=== PATIENT | male | born 1955 | race African-American/Black ===

== ENCOUNTER 2020-11-10 13:09 | Inpatient (IN) | payer MEDICARE, MEDICAID ==
[~2020-11-10] VITALS: Ht 162.6 cm; Wt 83.5 kg
[2020-11-10] MEDS ORDERED: FUROSEMIDE 40MG/4ML VIAL IVP ONE (14:45)
[2020-11-10 15:48] LABS: BASOPHILS % 0.7 % (0.0-2.0); EOSINOPHILS % 5.7 % (0.0-5.0); HEMATOCRIT. 36.1 % (42.0-52.0); HEMOGLOBIN. 12.2 g/dL (14.0-18.0); LYMPHOCYTES % 13.9 % (20.0-50.0); MEAN CORPUSCULAR HEMOGLOBIN 29.9 pg (28.0-32.0); MEAN CORPUSCULAR VOLUME 88.6 fL (80.0-94.0); MEAN PLATELET VOLUME 8.4 fl (7.4-10.4); MONOCYTES % 9.2 % (2.0-8.0); NEUTROPHILS % 70.5 % (40.0-76.0); PLATELET 241 x1000/uL (130-400); RED BLOOD CELL COUNT 4.08 mill/uL (4.7-6.1); RED CELL DISTRIBUTION WIDTH 14.6 % (11.6-14.6)
[2020-11-10 15:51] LABS: CHLORIDE 109 mEq/L (98-107)
[2020-11-10 15:54] LABS: PROTHROMBIN TIME 10.9 sec (9.6-11.0)
[2020-11-10] MEDS ORDERED: VANCOMYCIN 1 G PREMIX 200 ML IV SCH (16:00)
[2020-11-10] MEDS ORDERED: NIFEDIPINE XL 60MG TAB PO ONE (16:00)
[2020-11-10] MEDS ORDERED: ASPIRIN 81MG TABLET PO NR ×2 (16:15→20:45)
[2020-11-10 17:01] LABS: CLARITY URINE CLEAR (CLEAR); COLOR URINE YELLOW (YELLOW); KETONES URINE NEGATIVE (NEGATIVE); LEUKOCYTE ESTERASE URINE NEGATIVE (NEGATIVE); NITRITE URINE NEGATIVE (NEGATIVE); OCCULT BLOOD URINE TRACE (NEGATIVE); PROTEIN URINE NEGATIVE (NEGATIVE); SPECIFIC GRAVITY URINE 1.007 (1.005-1.030); UROBILINOGEN URINE 0.2 E.U./dL (0.2-1.0)
[2020-11-10] MEDS ORDERED: PIPERACILLIN/TAZ 3.375G PREMIX 50 ML IV SCH (20:45)
[2020-11-10] MEDS ORDERED: ACETAMINOPHEN 325MG TABLET PO PRN (20:45)
[2020-11-10] MEDS ORDERED: ZOLPIDEM TARTRATE 5MG TABLET PO PRN (21:00)
[2020-11-10] MEDS ORDERED: PIPERACILLIN/TAZ 3.375G PREMIX 50 ML IV NR (21:00)
[2020-11-10] MEDS: LOSARTAN POTASSIUM 100 MG TABLET PO SCH (21:37)
[2020-11-10] MEDS: ENOXAPARIN 40MG/0.4ML SYR SUBCUT SCH (21:37)
[2020-11-10] MEDS: ATORVASTATIN CALCIUM 40MG TABLET PO SCH (21:37)
[2020-11-10] MEDS: CLONIDINE 0.1MG TABLET PO PRN (23:58)
[2020-11-11 01:30] VITALS: BP 171/86
[2020-11-11] MEDS ORDERED: DEXTROSE 50% WATER 50ML SYRINGE IV PRN (04:00)
[2020-11-11] MEDS ORDERED: PIPERACILLIN/TAZOBACTAM 3.375G in DEXT 5% WATER 50ML IV SCH (06:00)
[2020-11-11 06:17] LABS: BASOPHILS % 0.8 % (0.0-2.0); EOSINOPHILS % 5.6 % (0.0-5.0); HEMATOCRIT. 38.3 % (42.0-52.0); HEMOGLOBIN. 12.7 g/dL (14.0-18.0); LYMPHOCYTES % 15.3 % (20.0-50.0); MEAN CORPUSCULAR HEMOGLOBIN 29.8 pg (28.0-32.0); MEAN PLATELET VOLUME 9.3 fl (7.4-10.4); MONOCYTES % 8.1 % (2.0-8.0); NEUTROPHILS % 70.2 % (40.0-76.0); PLATELET 232 x1000/uL (130-400); RED BLOOD CELL COUNT 4.25 mill/uL (4.7-6.1); RED CELL DISTRIBUTION WIDTH 14.5 % (11.6-14.6)
[2020-11-11] MEDS ORDERED: BLOOD SUGAR DIAGNOSTIC STRIP TEST SCH (07:10)
[2020-11-11] MEDS ORDERED: INSULIN LISPRO 100 UNITS/ML SUBCUT SCH (07:40)
[2020-11-11 08:00] VITALS: BP 167/90
[2020-11-11] MEDS ORDERED: POTASSIUM CHLORIDE 20MEQ TABLET SR PO SCH (08:00)
[2020-11-11] MEDS ORDERED: VANCOMYCIN 1 G PREMIX 200 ML IV SCH (10:00)
[2020-11-11] MEDS: LOSARTAN POTASSIUM 100 MG TABLET PO SCH (10:48)
[2020-11-11] MEDS ORDERED: FUROSEMIDE 40MG/4ML VIAL IVP SCH (13:15)
[2020-11-11] MEDS: AMLODIPINE 10MG TABLET PO SCH (13:49)
[2020-11-11] MEDS: LORAZEPAM 0.5MG TABLET PO PRN ×2 (15:10→20:33)
[2020-11-11] MEDS ORDERED: DOXY150T5 MT (15:56)
[2020-11-11] MEDS ORDERED: PRO1 MT (15:56)
[2020-11-11] MEDS ORDERED: BENA40TA9 MT (15:56)
[2020-11-11] MEDS ORDERED: CLON0.1T PO (15:56)
[2020-11-11] MEDS ORDERED: AM250 PO (15:56)
[2020-11-11] MEDS ORDERED: DONE5TAB26 MT (15:56)
[2020-11-11] MEDS ORDERED: METO-396 MT (15:56)
[2020-11-11] MEDS ORDERED: ASPI-1406 PO (15:56)
[2020-11-11] MEDS: FUROSEMIDE 40MG TABLET PO SCH (17:09)
[2020-11-11] MEDS: CLINDAMYCIN HCL 150MG CAPSULE PO SCH ×2 (17:09→23:10)
[2020-11-11 20:00] VITALS: BP 177/111
[2020-11-11] MEDS: ATORVASTATIN CALCIUM 40MG TABLET PO SCH (20:33)
[2020-11-11] MEDS: RISPERIDONE 0.5MG TABLET PO SCH (20:33)
[2020-11-11] MEDS: CLONIDINE 0.1MG TABLET PO PRN (20:33)
[2020-11-11] MEDS: DONEPEZIL HCL 5MG TABLET PO SCH (20:33)
[2020-11-11] MEDS: ENOXAPARIN 40MG/0.4ML SYR SUBCUT SCH (20:34)
[2020-11-12] VITALS: BP 178/90
[2020-11-12 04:00] VITALS: BP 148/85
[2020-11-12] MEDS: LORAZEPAM 0.5MG TABLET PO PRN (04:28)
[2020-11-12] MEDS: CLONIDINE 0.1MG TABLET PO PRN ×2 (04:28→15:06)
[2020-11-12] MEDS: CLINDAMYCIN HCL 150MG CAPSULE PO SCH (05:34)
[2020-11-12 06:43] LABS: BASOPHILS % 0.6 % (0.0-2.0); EOSINOPHILS % 5.8 % (0.0-5.0); HEMATOCRIT. 36.2 % (42.0-52.0); HEMOGLOBIN. 11.9 g/dL (14.0-18.0); LYMPHOCYTES % 13.5 % (20.0-50.0); MEAN CORPUSCULAR VOLUME 91.1 fL (80.0-94.0); MONOCYTES % 6.5 % (2.0-8.0); NEUTROPHILS % 73.6 % (40.0-76.0); PLATELET 98 x1000/uL (130-400); RED BLOOD CELL COUNT 3.97 mill/uL (4.7-6.1); RED CELL DISTRIBUTION WIDTH 14.7 % (11.6-14.6)
[2020-11-12 08:00] VITALS: BP 177/99
[2020-11-12] MEDS ORDERED: HYDRALAZINE HCL 50MG TABLET PO NR ×2 (09:00→17:30)
[2020-11-12] MEDS: RISPERIDONE 0.5MG TABLET PO SCH ×2 (09:57→17:45)
[2020-11-12] MEDS: FUROSEMIDE 40MG TABLET PO SCH (09:57)
[2020-11-12] MEDS: LOSARTAN POTASSIUM 100 MG TABLET PO SCH (09:57)
[2020-11-12] MEDS: DONEPEZIL HCL 5MG TABLET PO SCH (09:58)
[2020-11-12] MEDS: AMLODIPINE 10MG TABLET PO SCH (09:58)
[2020-11-12] MEDS ORDERED: CLINDAMYCIN 300 MG in DEXTROSE 5% WATER 50 ML IV SCH (11:15)
[2020-11-12 12:00] VITALS: BP 166/92
[2020-11-12] MEDS: CLINDAMYCIN 600MG PREMIX 50 ML IV SCH ×2 (15:39→22:22)
[2020-11-12 16:00] VITALS: BP 168/96
[2020-11-12] MEDS: FUROSEMIDE 40MG/4ML VIAL IVP SCH (17:45)
[2020-11-12 20:00] VITALS: BP 155/84
[2020-11-12] MEDS ORDERED: HYDRALAZINE HCL 50MG TABLET PO SCH (21:00)
[2020-11-12] MEDS: HYDRALAZINE HCL 100MG TABLET PO SCH (22:22)
[2020-11-12] MEDS: ATORVASTATIN CALCIUM 40MG TABLET PO SCH (22:22)
[2020-11-13] VITALS: BP 150/78
[2020-11-13 04:00] VITALS: BP 171/88
[2020-11-13] MEDS: FUROSEMIDE 40MG/4ML VIAL IVP SCH (06:27)
[2020-11-13] MEDS: CLINDAMYCIN 600MG PREMIX 50 ML IV SCH ×2 (06:27→15:33)
[2020-11-13 07:32] LABS: BASOPHILS % 0.2 % (0.0-2.0); EOSINOPHILS % 4.1 % (0.0-5.0); HEMATOCRIT. 33.8 % (42.0-52.0); HEMOGLOBIN. 11.4 g/dL (14.0-18.0); LYMPHOCYTES % 12.3 % (20.0-50.0); MEAN CORPUSCULAR HEMOGLOBIN 29.8 pg (28.0-32.0); MEAN CORPUSCULAR VOLUME 88.7 fL (80.0-94.0); MEAN PLATELET VOLUME 8.9 fl (7.4-10.4); MONOCYTES % 8.8 % (2.0-8.0); NEUTROPHILS % 74.6 % (40.0-76.0); RED BLOOD CELL COUNT 3.81 mill/uL (4.7-6.1)
[2020-11-13 08:00] VITALS: BP 184/82
[2020-11-13 08:00] LABS: PLATELET 225 x1000/uL (130-400)
[2020-11-13] MEDS ORDERED: LIDOCAINE HCL 1% 20ML VIAL (Pyxis) INJ ONE ×2 (08:02→12:30)
[2020-11-13] MEDS ORDERED: POTASSIUM CHLORIDE 20MEQ TABLET SR PO NR (08:15)
[2020-11-13] MEDS: HYDRALAZINE HCL 100MG TABLET PO SCH (09:00)
[2020-11-13] MEDS ORDERED: HEPARIN SODIUM 1,000 UNIT/1ML VIAL IV ONE (09:13)
[2020-11-13] MEDS: LOSARTAN POTASSIUM 100 MG TABLET PO SCH (10:00)
[2020-11-13] MEDS: RISPERIDONE 0.5MG TABLET PO SCH ×2 (10:00→17:45)
[2020-11-13] MEDS: DONEPEZIL HCL 5MG TABLET PO SCH (10:00)
[2020-11-13] MEDS: AMLODIPINE 10MG TABLET PO SCH (10:00)
[2020-11-13 12:00] VITALS: BP 171/88
[2020-11-13] MEDS ORDERED: IODIXANOL 320MG/ML 100 ML BOTTLE IV ONE (12:30)
[2020-11-13] MEDS ORDERED: MIDAZOLAM HCL 2 MG/2 ML VIAL ONE (12:48)
[2020-11-13] MEDS ORDERED: FENTANYL CITRATE/PF 50MCG/ML 2ML VIAL ONE (12:48)
[2020-11-13] MEDS ORDERED: FUROSEMIDE 40MG/4ML VIAL IVP SCH (13:00)
[2020-11-13] MEDS ORDERED: IOHEXOL-300 100 ML BOTTLE ONE (13:35)
[2020-11-13 16:00] VITALS: BP 168/68
[2020-11-13] MEDS: CLONIDINE 0.1MG TABLET PO PRN (21:55)
== END 2020-11-13 22:22 | DRG 252 ==
LOC: ER 13:09 → 8WST 18:35 → EDBEDREQTM 18:48 → EDBEDREQ 18:48 → ENRESERV 23:09 → 8WST 11-11 09:58
PROVIDERS: ADMIT Internal Medicine Pulmonary Disease; ATTEND Internal Medicine Pulmonary Disease
PROC: 047S3ZZ Dilation of Left Posterior Tibial Artery, Percutaneous Approach (ICD-10-PCS; principal; 2020-11-13)
PROC: B41G1ZZ Fluoroscopy of Left Lower Extremity Arteries using Low Osmolar Contrast (ICD-10-PCS; 2020-11-13)
PROC: 02HV33Z Insertion of Infusion Device into Superior Vena Cava, Percutaneous Approach (ICD-10-PCS; 2020-11-13)
PROC: B548ZZA Ultrasonography of Superior Vena Cava, Guidance (ICD-10-PCS; 2020-11-13)
DX: E11.51 Type 2 diabetes mellitus with diabetic peripheral angiopathy without gangrene (principal); I50.41 Acute combined systolic (congestive) and diastolic (congestive) heart failure; L03.116 Cellulitis of left lower limb; I11.0 Hypertensive heart disease with heart failure; E78.5 Hyperlipidemia, unspecified; E78.00 Pure hypercholesterolemia, unspecified; I70.202 Unspecified atherosclerosis of native arteries of extremities, left leg; Z20.822 Contact with and (suspected) exposure to COVID-19; F03.90 Unspecified dementia, unspecified severity, without behavioral disturbance, psychotic disturbance, mood disturbance, and anxiety; I25.2 Old myocardial infarction; Z86.73 Personal history of transient ischemic attack (TIA), and cerebral infarction without residual deficits; Z79.82 Long term (current) use of aspirin; Z79.899 Other long term (current) drug therapy
CPT/HCPCS: 36415; 37228; 71045; 73590; 75710; 76937; 80048; 80053; 80061; 81003; 82962; 83036; 83880; 84443; 84484; 85025; 85347; 87426; 93005; 93306; 93923; 93970; 99285; C1725; C1760; C1769; C1887; C1893; C1894; J1644; J1650; J1940; J2250; J2543; J3010; J3370; J3490; J7040; J7060; Q9967

== ENCOUNTER 2021-06-22 12:20 | Emergency (ER) | payer MEDICARE, MEDICAID ==
[~2021-06-22] VITALS: Ht 172.7 cm; Wt 79.0 kg
[~2021-06-22 12:20] MED LIST: AM250 PO; ASPI-1406 PO; BENA40TA9 MT; CLON0.1T PO; DONE5TAB26 MT; DOXY150T5 MT; METO-396 MT; PRO1 MT
[2021-06-22 14:18] LABS: BASOPHILS % 0.5 % (0.0-2.0); EOSINOPHILS % 4.2 % (0.0-5.0); HEMATOCRIT. 32.9 % (42.0-52.0); LYMPHOCYTES % 11.1 % (20.0-50.0); MEAN CORPUSCULAR HEMOGLOBIN 30.8 pg (28.0-32.0); MEAN CORPUSCULAR VOLUME 91.8 fL (80.0-94.0); MEAN PLATELET VOLUME 9.5 fl (7.4-10.4); MONOCYTES % 9.3 % (2.0-8.0); NEUTROPHILS % 74.9 % (40.0-76.0); PLATELET 194 x1000/uL (130-400); RED BLOOD CELL COUNT 3.58 mill/uL (4.7-6.1); RED CELL DISTRIBUTION WIDTH 14.1 % (11.6-14.6)
[2021-06-22 14:25] LABS: CHLORIDE 106 mEq/L (98-107)
[2021-06-22] MEDS ORDERED: POTASSIUM CHLORIDE 20MEQ TABLET SR PO NR (15:15)
[2021-06-22] MEDS ORDERED: POTA-79 MT (15:56)
[2021-06-22] MEDS ORDERED: SULF1TAB47 MT (15:56)
[2021-06-22] MEDS ORDERED: FURO-152 MT (15:56)
[2021-06-22] MEDS ORDERED: CEPH500C2 MT (15:56)
[2021-06-22 16:15] VITALS: BP 132/61
== END 2021-06-22 20:47 | disposition home or self-care (01) ==
LOC: ER 12:20
DX: L03.116 Cellulitis of left lower limb (principal); L97.829 Non-pressure chronic ulcer of other part of left lower leg with unspecified severity; I83.028 Varicose veins of left lower extremity with ulcer other part of lower leg; E78.00 Pure hypercholesterolemia, unspecified; E11.9 Type 2 diabetes mellitus without complications; I25.2 Old myocardial infarction; I10 Essential (primary) hypertension; Z79.899 Other long term (current) drug therapy; Z79.82 Long term (current) use of aspirin; Z86.73 Personal history of transient ischemic attack (TIA), and cerebral infarction without residual deficits
CPT/HCPCS: 36415; 80053; 83880; 85025; 93005; 93970; 99285